=== PATIENT | male | born 1980 | race Caucasian/White ===

== ENCOUNTER 2016-07-08 11:35 | Emergency (ER) | payer SELFPAY ==
[~2016-07-08] VITALS: Ht 182.9 cm; Wt 85.0 kg
[~2016-07-08 11:35] MED LIST: FLEXERIL OR; PERCOCET 5/325M1 TAB OR
[2016-07-08] MEDS ORDERED: TRAMADOL HYDROC50 MG PO (13:28)
[2016-07-08] MEDS ORDERED: MOTRIN800 MG PO (13:28)
[2016-07-08] MEDS ORDERED: FLEXERIL PO (13:28)
[2016-07-08 13:42] VITALS: BP 1130/88
== END 2016-07-08 13:42 | disposition home or self-care (01) | DRG 563 ==
LOC: ED 11:35
DX: S39.012A Strain of muscle, fascia and tendon of lower back, initial encounter (principal); S29.012A Strain of muscle and tendon of back wall of thorax, initial encounter; X58.XXXA Exposure to other specified factors, initial encounter